=== PATIENT | male | born 1965 | race Asian ===

== ENCOUNTER 2017-10-06 12:58 | Inpatient (IN) | payer MEDICAID ==
[~2017-10-06] VITALS: Ht 165.1 cm; Wt 81.2 kg
[2017-10-06] VITALS (23 sets, daily range): BP systolic 134–222; BP diastolic 90–126
--- NOTE | 2017-10-06 13:03 | NUR ---
A/OX4, PT BB COUSIN FROM HOME FOR DIZZINESS W/ NAUSEA AND VOMITING X YESTERDAY. PT IS ALSO COMPLAINING OF HEADACHE. UPON ASSESSMENT, PT IS NOTED WITH HIGH BP AT 220/145. PT STS HE TAKES LOSARTAN DAILY FOR HTN. PT HAS A H/O OF CVA WITH LT SIDED RESIDUAL. PT DENIES CP/ OR SOB. PT ASSISTED TO EDBED 03. GOWNED AND PLACED ON CONT MONITORING. ALL NEEDS ARE ATTENDED, KEPT WARM AND COMFORTABLE. ENDORSED TO IDA MAYES
[2017-10-06] MEDS ORDERED: ONDANSETRON HCL/PF 4 MG/2 ML VIAL ONE (13:21)
[2017-10-06] MEDS ORDERED: hydrALAZINE HCL IV 20 MG VIAL ONE ×2 (13:21→14:08)
[2017-10-06] MEDS ORDERED: MORPHINE SULFATE INJ 4 MG/ML DISP.SYRIN ONE (13:22)
[2017-10-06 13:28] LABS: BASOPHILS % (AUTO) 0.4 % (0.0-2.0); EOSINOPHILS # (AUTO) 0.4 /CMM (0.0-0.7); EOSINOPHILS % (AUTO) 4.3 % (0.0-6.0); HEMATOCRIT 46 % (39-51); HEMOGLOBIN 15.3 g/dL (13.5-17.5); LYMPHOCYTES # (AUTO) 2.4 /CMM (0.8-4.8); LYMPHOCYTES % (AUTO) 29.2 % (20.0-44.0); MEAN CORPUSCULAR HEMOGLOBIN 29 PG (26.0-33.0); MEAN CORPUSCULAR HGB CONC 33 g/dl (31.0-36.0); MEAN CORPUSCULAR VOLUME 88 fL (80-96); MONOCYTES # (AUTO) 0.4 /CMM (0.1-1.30); MONOCYTES % (AUTO) 4.7 % (2.0-12.0); NEUTROPHILS # (AUTO) 5.1 /CMM (1.8-8.9); NEUTROPHILS % (AUTO) 61.4 % (43.0-81.0); PLATELET COUNT (AUTO) 237 /CMM (150-450); RDW COEFFICIENT OF VARIATION 14.1 (11.5-15.0); RED BLOOD CELL COUNT(AUTO) 5.23 MIL/uL (4.5-6.0); WHITE BLOOD COUNT (AUTO) 8.3 K/uL (4.3-11.0)
[2017-10-06] MEDS ORDERED: ONDANSETRON HCL/PF 4 MG/2 ML VIAL IVP ONE (13:30)
[2017-10-06] MEDS ORDERED: hydrALAZINE HCL IV 20 MG VIAL IV ONE ×2 (13:30→14:00)
[2017-10-06] MEDS ORDERED: IV NS 0.9% 500 ML BAG IV ONE (13:30)
[2017-10-06] MEDS ORDERED: MORPHINE SULFATE INJ 2 MG/ML DISP.SYRIN IV ONE (13:30)
[2017-10-06 13:44] LABS: ALANINE AMINOTRANSFERASE 36 U/L (12-78); ALBUMIN 3.5 g/dL (3.4-5.0); ALKALINE PHOSPHATASE 105 U/L (46-116); ASPARTATE AMINOTRANSFERASE 31 U/L (15-37); BILIRUBIN,DIRECT 0.1 mg/dL (0.0-0.2); BILIRUBIN,TOTAL 0.5 mg/dL (0.2-1.0); CALCIUM, SERUM 8.5 mg/dL (8.5-10.1); CARBON DIOXIDE 29 mmol/L (21-32); CHLORIDE 103 mmol/L (98-107); CREATININE 1.5 mg/dL (0.6-1.3); GLUCOSE 128 mg/dL (74-106); SODIUM SERUM 140 mmol/L (136-145); TOTAL PROTEIN, SERUM 7.6 g/dL (6.4-8.2); UREA NITROGEN, BLOOD 24 mg/dL (7-18)
[2017-10-06 13:46] LABS: TROPONIN I < 0.017 ng/mL (0.00-0.056)
[2017-10-06 13:47] LABS: POTASSIUM 2.7 mmol/L (3.5-5.1)
[2017-10-06 13:49] LABS: INR 0.93 (0.87-1.13)
--- NOTE | 2017-10-06 13:51 | NUR ---
URINE SAMPLE COLLECTED SENT TO LAB
[2017-10-06] MEDS ORDERED: POTASSIUM CHLORIDE 20 MEQ TAB.PRT.SR PO ONE ×2 (14:00→14:09)
[2017-10-06] MEDS ORDERED: CLONIDINE HCL 0.1 MG TABLET PO ONE (14:00)
[2017-10-06] MEDS ORDERED: POTASSIUM CL. PREMIX PERIPHER. 50 ML ONE ×2 (14:08→14:42)
[2017-10-06] MEDS ORDERED: CLONIDINE HCL 0.1 MG TABLET ONE (14:09)
[2017-10-06] MEDS: POTASSIUM CL. PREMIX PERIPHER. 50 ML IV SCH ×3 (14:09→16:45)
[2017-10-06 14:12] LABS: APPEARANCE,URINE CLEAR (CLEAR); BILIRUBIN,URINE NEGATIVE (NEGATIVE); BLOOD, URINE NEGATIVE Ery/uL (NEGATIVE); COLOR,URINE YELLOW (YELLOW); KETONES,URINE NEGATIVE (NEGATIVE); LEUKOCYTE ESTERASE ,URINE NEGATIVE (NEGATIVE); NITRITE, URINE NEGATIVE (NEGATIVE); PROTEIN,URINE 2+ mg/dl (NEGATIVE); UGLUCOSE NEGATIVE (NEGATIVE); UROBILINOGEN,URINE 0.2 EU/dL (0.2)
--- NOTE | 2017-10-06 14:15 | NUR ---
SPOKE WITH NURSE SUP FOR BAM BED
[2017-10-06] MEDS ORDERED: ENALAPRILAT INJ (1.25 MG/ML) 1.25 MG/ML VIAL IV STA ×2 (14:28→15:12)
[2017-10-06] MEDS ORDERED: ENALAPRILAT DIHYD. (2.5MG/ML) 1.25 MG/ML VIAL IV ONE ×2 (14:41→15:17)
[2017-10-06] MEDS ORDERED: Magnesium 1GM/D5W 100ML PREMIX 200 ML IV ONE (14:42)
[2017-10-06] MEDS ORDERED: LOSA100T15 PO (14:45)
[2017-10-06 14:47] LABS: BACTERIA,URINE None seen /HPF (None Seen); MUCUS,URINE Few /LPF (None Seen); RBC,URINE 0-2 /HPF (0-2); SQUAMOUS EPITHELIAL CELL,UR 0-2 /HPF (None Seen); WBC,URINE 0-2 /HPF (0-3)
[2017-10-06] MEDS: Magnesium 1GM/D5W 100ML PREMIX 100 ML IV SCH ×2 (14:52→15:42)
--- NOTE | 2017-10-06 15:17 | NUR ---
PAGED DR COELLO
--- NOTE | 2017-10-06 15:28 | NUR ---
INFORMED NURSE SUP THAT DR COELLO IS REQUESTING ICU BED - AWAITING ASSIGNMENT
[2017-10-06] MEDS ORDERED: MAG HYDROX/AL HYDROX/SIMETH 30 ML UDC PO PRN (15:30)
[2017-10-06] MEDS ORDERED: Z GUARD REMEDY 2 OZ OINT TP PRN (15:30)
[2017-10-06] MEDS ORDERED: MAGNESIUM HYDROXIDE 30 ML UDC PO PRN (15:30)
[2017-10-06] MEDS ORDERED: ZOLPIDEM TARTRATE 5 MG TABLET PO PRN (15:30)
[2017-10-06] MEDS ORDERED: ACETAMINOPHEN 325 MG TABLET PO PRN (15:30)
[2017-10-06] MEDS ORDERED: HYDROCODONE/APAP 5/325MG 1 EACH TABLET PO PRN (15:30)
[2017-10-06] MEDS ORDERED: MORPHINE SULFATE INJ 2 MG/ML DISP.SYRIN IV PRN (15:30)
[2017-10-06] MEDS ORDERED: AMLODIPINE BESYLATE 5 MG TABLET PO SCH (15:30)
[2017-10-06 15:31] LABS: MAGNESIUM 1.9 mg/dL (1.8-2.4)
--- NOTE | 2017-10-06 15:51 | NUR ---
GAVE REPORT TO DAVID MAYES ICU ROOM 251 ICU HYPERTENSIVE EMERGENCIES HYPOKALEMIA. PT POTASSIUM INFUSING 40 MEQ TOTAL
[2017-10-06] MEDS ORDERED: POTASSIUM CL. PREMIX PERIPHER. 100 ML ONE (16:08)
--- NOTE | 2017-10-06 16:30 | NUR ---
VENDING MACHINE TECHNICIAN RECEIVED PATIENT AWAKE , ALERT ORIENTED X 3 AFEBRILE, NO HEADACHE DIZZINESS VERBALIZED BY THE PATIENT \ Addendum: 10/06/17 at 1740 by DAVID NEIL RN ON GOING POTASSIUM IV 3RD BAG IS GIVEN MONITORED CLOSELY
[2017-10-06] MEDS: IV NS 0.9% 1,000 ML IV SCH (16:47)
[2017-10-06] MEDS: CLONIDINE HCL 0.1 MG TABLET PO PRN (16:50)
[2017-10-06] MEDS: hydrALAZINE HCL IV 20 MG VIAL IV PRN (17:39)
--- NOTE | 2017-10-06 17:41 | NUR ---
STRIP POLISHER BLOOD PRESSORE STILL HIGH DESPITE OF RECENT INTERVENTION HYDRALAZINE IV GIVEN
[2017-10-06] MEDS: ONDANSETRON HCL/PF 4 MG/2 ML VIAL IVP PRN (18:04)
--- NOTE | 2017-10-06 18:22 | NUR ---
BP 222/118 AFTER NORVASC, CLONIDINE, APRESOLINE. DID HAVE EMESIS AND RECEIVED ZOFRAN. C/O SLIGHT DIZZINESS. D/W DR COELLO. ORDERS FOR NITROPRUSSIDE GTT
[2017-10-06] MEDS ORDERED: NTG 50 MG/D5W250 ML BOTTL 250 ML IV PRN (19:00)
--- NOTE | 2017-10-06 20:00 | NUR ---
FOOD AND BEVERAGE COORDINATOR - NOTES - PT RECEIVED IN BED, BP ELEVATED, PT ON NITRO DRIP TO KEEP SBP BETWEEN 130 AND 160. PT IS ALERT AND ORIENTED X 4, SLEEPING, AROUSES EASILY. PT IS ON ROOM AIR, TOLERATING WELL. PT IS SINUS RHYTHM ON THE MONITOR HR 70S-80S. PT HAS 2 PERIPHERAL IVS WITH NITRO DRIP AND NS @ 75 ML/HR. WILL CONTINUE TO MONITOR
[2017-10-07] VITALS (97 sets, daily range): BP systolic 121–206; BP diastolic 71–141
[2017-10-07] MEDS: IV NS 0.9% 1,000 ML IV SCH (05:09)
[2017-10-07 05:39] LABS: BASOPHILS % (AUTO) 0.3 % (0.0-2.0); EOSINOPHILS % (AUTO) 0.2 % (0.0-6.0); HEMATOCRIT 42 % (39-51); HEMOGLOBIN 14.3 g/dL (13.5-17.5); LYMPHOCYTES # (AUTO) 1.2 /CMM (0.8-4.8); LYMPHOCYTES % (AUTO) 11.6 % (20.0-44.0); MEAN CORPUSCULAR HEMOGLOBIN 30 PG (26.0-33.0); MEAN CORPUSCULAR HGB CONC 34 g/dl (31.0-36.0); MEAN CORPUSCULAR VOLUME 87 fL (80-96); MONOCYTES # (AUTO) 0.6 /CMM (0.1-1.30); MONOCYTES % (AUTO) 5.8 % (2.0-12.0); NEUTROPHILS # (AUTO) 8.6 /CMM (1.8-8.9); NEUTROPHILS % (AUTO) 82.1 % (43.0-81.0); PLATELET COUNT (AUTO) 227 /CMM (150-450); RDW COEFFICIENT OF VARIATION 14.4 (11.5-15.0); RED BLOOD CELL COUNT(AUTO) 4.85 MIL/uL (4.5-6.0); WHITE BLOOD COUNT (AUTO) 10.5 K/uL (4.3-11.0)
[2017-10-07 05:55] LABS: CALCIUM, SERUM 8.2 mg/dL (8.5-10.1); CREATININE 1.3 mg/dL (0.6-1.3); MAGNESIUM 2.3 mg/dL (1.8-2.4); PHOSPHORUS 3.2 mg/dL (2.5-4.9); POTASSIUM 3.1 mmol/L (3.5-5.1)
--- NOTE | 2017-10-07 07:53 | NUR ---
INITIAL INFORMATION OPERATOR NOTE RCVD PT RESTING IN BED, EASILY AROUSED TO NAME, SHOWING NO S/O DISTRESS/PAIN AT THIS TIME. ON RA TOLERATING WELL. URINAL AT BEDSIDE. IV SITES C/D/I/PATENT. NO S/O INFILTRATION/PHLEBITIS OBSERVED IVF INFUSING. WILL CONTINUE TO MONITOR PT FOR SAFETY AND COMFORT. CALL LIGHT WITHIN REACH. BED IN LOW AND LOCKED POSITION.
[2017-10-07] MEDS ORDERED: METOPROLOL TARTRATE 25 MG TABLET PO SCH (08:00)
[2017-10-07 08:31] LABS: TROPONIN I 0.842 ng/mL (0.00-0.056)
[2017-10-07 08:36] LABS: THYROID STIMULATING HORMONE 0.22 uIU/mL (0.358-3.74)
--- NOTE | 2017-10-07 08:41 | NUR ---
ORTHOTIC/PROSTHETIC CLINICIAN NOTE DR. LOPEZ IN UNIT INFORMED OF PT'S TROPONIN TRENDING UP. ACKNOWLEDGED. NO NEW ORDERS RCVD.
[2017-10-07] MEDS ORDERED: VALSARTAN 80 MG TABLET PO SCH (09:00)
[2017-10-07] MEDS ORDERED: LOSARTAN POTASSIUM 25 MG TABLET PO SCH (09:00)
[2017-10-07] MEDS: POTASSIUM CHLORIDE 20 MEQ TAB.PRT.SR PO SCH ×3 (09:07→12:19)
[2017-10-07] MEDS: AMLODIPINE BESYLATE 5 MG TABLET PO SCH (09:08)
[2017-10-07] MEDS: hydrALAZINE HCL 50 MG TABLET PO SCH ×3 (09:08→17:33)
[2017-10-07] MEDS ORDERED: CT SWABBABLE VALVE TRANS SET 1 EA INFUS.SET MC ONE (09:16)
[2017-10-07] MEDS: ONDANSETRON HCL/PF 4 MG/2 ML VIAL IVP PRN ×2 (09:16→20:37)
[2017-10-07] MEDS ORDERED: IOHEXOL-350 100 ML VIAL IV ONE (09:16)
[2017-10-07] MEDS ORDERED: IV NS 0.9% 250 ML IV ONE (09:17)
[2017-10-07] MEDS: METOPROLOL TARTRATE 25 MG TABLET PO SCH ×3 (12:19→23:44)
--- NOTE | 2017-10-07 13:09 | NUR ---
FAGOT MAKER NOTE PT OBSERVED HAVING DIFFICULTY URINATING, VOIDING IN SMALL AMOUNTS. PT DENIES ANY PAIN OVER BLADDER AREA, UPON PALPATION FEELS FIRM. BLADDER SCAN DONE POST-VOID RESIDUAL >200 ML. PT INFORMED OF FINDING AND POSSIBLE CATHETERIZATION. PT AGREES. DR. COELLO CONTACTED REGARDING ABOVE AND RECOMMENDED TO INSERT SILVER. ORDER ENTERED AND ACKNOWLEDGED.
--- NOTE | 2017-10-07 14:27 | NUR ---
MANAGER PHARMACEUTICAL NOTE SILVER IN PLACE DRAINED OVER 400ML POST-INSERTION. WILL CONTINUE TO MONITOR.
[2017-10-07] MEDS: hydrALAZINE HCL IV 20 MG VIAL IV PRN ×2 (15:21→19:29)
--- NOTE | 2017-10-07 18:57 | NUR ---
HOOP PUNCHER NOTE PT REMAINS HYPERTENSIVE, ALERT, SLEEPY DURING SHIFT. SR/ST THROUGHOUT THE DAY. BREATHING WELL ON RA. SILVER TO GRAVITY DRAINING CLEAR, YELLOW URINE. NO BM DURING SHIFT AND NO PO INTAKE OTHER THAN WATER AND MEDICATIONS. IV SITES C/D/I/PATENT. NO S/O INFILTRATION/PHLEBITIS OBSERVED UPON FLUSHING. PT'S CARE WILL BE ENDORSED TO CHILD CARE SITTER RN FOR CONTINUITY OF CARE. BED IN LOW AND LOCKED POSITION. CALL LIGHT WITHIN REACH.
--- NOTE | 2017-10-07 20:00 | NUR ---
MICRO PHOTOGRAPHER - NOTES - PT RECEIVED IN BED, BP ELEVATED. PT IS ALERT AND ORIENTED X 4, SLEEPING, AROUSES EASILY. PT IS ON ROOM AIR, TOLERATING WELL. PT IS SINUS RHYTHM ON THE MONITOR HR 70S-80S. PT HAS 2 PERIPHERAL IVS. WILL CONTINUE TO MONITOR
--- NOTE | 2017-10-07 20:19 | NUR ---
PT HAD AN EPISODE OF EMESIS WITH WRETCHING
[2017-10-07] MEDS: CLONIDINE HCL 0.1 MG TABLET PO PRN (20:37)
--- NOTE | 2017-10-07 20:51 | NUR ---
PT HAD ANOTHER EPISODE OF EMESIS AND THEN ATE APPROX 20% OF DINNER , SBP OVER 200, ALL BP PRN MEDS GIVEN, NO MORPHINE 2 MG AVAILABLE, CALLING MD NOW FOR OTHER OPTIONS
[2017-10-07] MEDS ORDERED: CLONIDINE HCL 0.1 MG TABLET PO ONE (21:00)
[2017-10-07] MEDS: HYDROMORPHONE INJ 0.5 MG/0.5 ML SYRINGE IV PRN (21:10)
[2017-10-08] VITALS (62 sets, daily range): BP systolic 108–189; BP diastolic 67–128
[2017-10-08] MEDS: hydrALAZINE HCL IV 20 MG VIAL IV PRN (04:11)
[2017-10-08] MEDS: METOPROLOL TARTRATE 25 MG TABLET PO SCH ×4 (05:23→23:29)
--- NOTE | 2017-10-08 07:49 | NUR ---
INITIAL REVENUE ENFORCEMENT AGENT NOTE RCVD PT SLEEPING EASILY AROUSED TO NAME, SR ON TELE. ON RA TOLERATING WELL. SILVER TO GRAVITY DRAINING CLEAR, YELLOW URINE. IV SITES C/D/I/PATENT. NO S/O INFILTRATION/PHLEBITIS UPON FLUSHING. SBP REMAINS ELEVATED. WILL CONTINUE TO MONITOR AND ADMINISTER MEDICATIONS NEEDED. BED IN LOW AND LOCKED POSITION. CALL LIGHT WITHIN REACH.
[2017-10-08] MEDS: ONDANSETRON HCL/PF 4 MG/2 ML VIAL IVP PRN (07:56)
[2017-10-08] MEDS: HYDROMORPHONE INJ 0.5 MG/0.5 ML SYRINGE IV PRN (07:58)
[2017-10-08] MEDS: hydrALAZINE HCL 50 MG TABLET PO SCH ×3 (08:00→16:10)
[2017-10-08] MEDS: AMLODIPINE BESYLATE 5 MG TABLET PO SCH (08:00)
[2017-10-08 08:14] LABS: BASOPHILS % (AUTO) 0.1 % (0.0-2.0); EOSINOPHILS % (AUTO) 0.1 % (0.0-6.0); HEMATOCRIT 47 % (39-51); HEMOGLOBIN 15.7 g/dL (13.5-17.5); LYMPHOCYTES # (AUTO) 1.4 /CMM (0.8-4.8); LYMPHOCYTES % (AUTO) 13.1 % (20.0-44.0); MEAN CORPUSCULAR HEMOGLOBIN 29 PG (26.0-33.0); MEAN CORPUSCULAR HGB CONC 33 g/dl (31.0-36.0); MEAN CORPUSCULAR VOLUME 88 fL (80-96); MONOCYTES # (AUTO) 0.3 /CMM (0.1-1.30); MONOCYTES % (AUTO) 2.9 % (2.0-12.0); NEUTROPHILS # (AUTO) 8.7 /CMM (1.8-8.9); NEUTROPHILS % (AUTO) 83.8 % (43.0-81.0); PLATELET COUNT (AUTO) 249 /CMM (150-450); RDW COEFFICIENT OF VARIATION 14.1 (11.5-15.0); RED BLOOD CELL COUNT(AUTO) 5.34 MIL/uL (4.5-6.0); WHITE BLOOD COUNT (AUTO) 10.4 K/uL (4.3-11.0)
[2017-10-08] MEDS: ISOSORBIDE DINITRATE (20MG) 20 MG TABLET PO SCH ×2 (08:15→16:09)
[2017-10-08] MEDS: ASPIRIN 81 MG TAB.CHEW PO SCH (08:15)
[2017-10-08] MEDS: HYDROCHLOROTHIAZIDE 25 MG TABLET PO SCH (08:15)
[2017-10-08] MEDS: ATORVASTATIN 10 MG TABLET PO SCH (08:15)
[2017-10-08] MEDS: VALSARTAN 80 MG TABLET PO SCH (08:16)
[2017-10-08 08:22] LABS: CALCIUM, SERUM 8.6 mg/dL (8.5-10.1); CREATININE 1.1 mg/dL (0.6-1.3); POTASSIUM 3.5 mmol/L (3.5-5.1)
[2017-10-08] MEDS: ENOXAPARIN SODIUM 40 MG/0.4 ML DISP.SYRIN SQ SCH (08:22)
--- NOTE | 2017-10-08 14:19 | NUR ---
RN NOTES RECEIVED PT FROM ICU IN ROOM 102, A/Ox2, ON RA , RESPIRATION EVEN AND UNLBOARD, NO SOB NOTED , ON TELE SR , HR IN 70'S, SILVER DRAINING TO GRAVITY , L AC IV SITE G 18 AND L WRIST IV SITE G 20 CDI, SR UP x3, CALL LIGHT WITHIN EASY REACH, BED LOCKED AND IN LOWEST POSITION , CONTINUE TO MONITOR PT CLOSELY .
--- NOTE | 2017-10-08 14:21 | NUR ---
ICU TRANSFER TO BAM RN NOTE PT TRANSFERRED TO BAM VIA MONITORED BED, PER PROTOCOL WITH RN AT BEDSIDE. PT REMAINED IN STABLE CONDITION, NO S/O DISTRESS/PAIN OBSERVED/REPORTED. SR ON TELE, ON RA TOLERATING WELL. SILVER TO GRAVITY DRAINING WELL. IV SITES C/D/I/PATENT. PT'S CARE ENDORSED TO SUGEY WEBB FOR CONTINUITY OF CARE.
[2017-10-08] MEDS: BOOST PLUS FOOD-VANILLA 237 ML BOX PO SCH (17:00)
--- NOTE | 2017-10-08 18:13 | NUR ---
RN NOTES PT STABLE , RESPIRATION EVEN AND UNLABORED, NO DISTRESS NOTED , ENCOURAGED PO INTAKE , WILL ENDORSE TO PUBLIC INFORMATION DIRECTOR NURSE FOR NICCI.
--- NOTE | 2017-10-08 19:30 | NUR ---
RN INITIAL NOTES: RECEIVED REPORT FROM GLORIA MAYES, PT IN BED, SLEEPING, AROUSES TO TACTILE STIMULI. PT IS A/O X4, TAGALOG SPEAKING, ON RA RESPIRATION EVEN AND UNLABORED, ON TELE MONITORING SINUS RHYTHM HR 67, DENIES ANY PAIN OR DISCOMFORT AT THIS TIME, PT HAS LEFT AC IV ACCESS AND LEFT WRIST IV ACCESS BOTH FLUSHING WELL, ON HL. SCD IN PLACED, PT ABLE TO TURN AND REPOSITION, HAS SILVER CATHETER IN PLACED DRAINING INTO KARIN COLORED URINE. SAFETY PRECAUTIONS FOR FALL INITIATED CALL LIGHT IN REACH, WILL CONTINUE TO MONITOR
[2017-10-08] MEDS: CLONIDINE HCL 0.1 MG TABLET PO PRN (20:18)
--- NOTE | 2017-10-08 20:18 | NUR ---
PRN CATAPRES: PRN CATAPRES 0.1MG TAB ADMINISTERED FOR BP 163/90 HR 72, WILL RECHECK PT'S BP AFTER AN HOUR
[2017-10-09] VITALS (10 sets, daily range): BP systolic 135–182; BP diastolic 78–109
[2017-10-09] MEDS: hydrALAZINE HCL IV 20 MG VIAL IV PRN (05:14)
--- NOTE | 2017-10-09 05:15 | NUR ---
PRN HYDRALAZINE IV: RECHECK PT'S VS AND REVEAL 174/103 HR 64 RR 20, PT DENIES ANY PAIN OR DISCOMFORT, ON SINUS RHYTHM HR 65, PRN IV HYDRALAZINE 20MG SLOW IVP FOR 30SEC ADMINISTERED AT THIS TIME, DONOR SERVICES COORDINATOR NOTIFIED ABOUT PT RECEIVING IVP MEDICATION AND WAS INSTRUCTED TO MAKE RN AWARE IN CASE THERE WOULD BE ANY RHYTHM CHANGES DURING MEDICATION ADMINISTRATION. VS WILL BE RECHECK AFTER 30MINS, PT CONNECTED TO VS MACHINE HR 67, SPO2 97% RR 18, ON TELEMONITORING HR 65 SINUS RHYTHM. NO CHANGES IN HEART RHYTHM NOTED PER DONOR SERVICES COORDINATOR, WILL CONTINUE MONITORING PT.
--- NOTE | 2017-10-09 05:24 | NUR ---
REASSESSMENT OF VS AFTER GIVING IV HYDRALAZINE: BP 141/78 HR 65 RR 18 SPO2 97% SINUS RHYTHM HR 65, NO OTHER COMPLAINTS FROM THE PT, DENIES ANY PAIN OR DISCOMFORT
[2017-10-09] MEDS: METOPROLOL TARTRATE 25 MG TABLET PO SCH ×3 (06:00→18:04)
[2017-10-09 06:37] LABS: BASOPHILS % (AUTO) 0.2 % (0.0-2.0); EOSINOPHILS % (AUTO) 0.3 % (0.0-6.0); HEMATOCRIT 44 % (39-51); HEMOGLOBIN 14.7 g/dL (13.5-17.5); LYMPHOCYTES # (AUTO) 1.8 /CMM (0.8-4.8); LYMPHOCYTES % (AUTO) 16.7 % (20.0-44.0); MEAN CORPUSCULAR HEMOGLOBIN 30 PG (26.0-33.0); MEAN CORPUSCULAR HGB CONC 34 g/dl (31.0-36.0); MEAN CORPUSCULAR VOLUME 88 fL (80-96); MONOCYTES # (AUTO) 0.7 /CMM (0.1-1.30); MONOCYTES % (AUTO) 6.3 % (2.0-12.0); NEUTROPHILS # (AUTO) 8.2 /CMM (1.8-8.9); NEUTROPHILS % (AUTO) 76.5 % (43.0-81.0); PLATELET COUNT (AUTO) 255 /CMM (150-450); RDW COEFFICIENT OF VARIATION 13.8 (11.5-15.0); RED BLOOD CELL COUNT(AUTO) 4.96 MIL/uL (4.5-6.0); WHITE BLOOD COUNT (AUTO) 10.7 K/uL (4.3-11.0)
--- NOTE | 2017-10-09 06:43 | NUR ---
RN CLOSING NOTES: PT IN BED, REMAIN ON RA DENIES ANY SOB, DENIES ANY PAIN THROUGHOUT THE SHIFT, IV ACCESS REMAINS PATENT AND FLUSHING WELL, ON HL. REMAINS ON SINUS RHYTHM HR 72, VS REMAINS STABLE, SILVER CATHETER REMAINS PATENT AND DRAINING INTO KARIN COLORED URINE. NEEDS ATTENDED. BLE OFFLOADED. SAFETY PRECAUTIONS FOR FALL REMAINS ENGAGED, CALL LIGHT IN REACH. WILL ENDORSE TO DAY RN FOR NICCI.
[2017-10-09 06:48] LABS: TROPONIN I 0.212 ng/mL (0.00-0.056)
--- NOTE | 2017-10-09 06:51 | NUR ---
TROPONIN 0.212 RECEIVED CRITICAL LAB RESULT FOR TROPONIN 0.212, REPORTED BY DONNA KERNS FROM LAB. PT'S PREVIOUS RESULT IS 0.842, RESULT TRENDING DOWN. CONTACTED [employer] AWAITING FOR CALL BACK
--- NOTE | 2017-10-09 07:20 | NUR ---
RN OPENING/TELE NOTES RECEIVED PT. IN BED A&OX3. BREATHING UNLABORED, AND EVENLY ON ROOM AIR. NO S/S OF ACUTE DISTRESS. IV ACCESS IS INTACT AND PATENT. PT. DENIES PAIN. 2 SIDE RAILS UP, AND INSTRUCTED PT. TO USE CALL LIGHT FOR ASSISTANCE. ALL NEEDS MET. WILL CONTINUE TO ASSESS AND MONITOR
[2017-10-09] MEDS: CLONIDINE HCL 0.1 MG TABLET PO PRN (07:39)
[2017-10-09 07:57] LABS: CREATININE 1.3 mg/dL (0.6-1.3); MAGNESIUM 2.4 mg/dL (1.8-2.4); PHOSPHORUS 3.8 mg/dL (2.5-4.9); POTASSIUM 3.3 mmol/L (3.5-5.1); TOTAL PROTEIN, SERUM 7.5 g/dL (6.4-8.2)
[2017-10-09] MEDS: AMLODIPINE BESYLATE 5 MG TABLET PO SCH (08:16)
[2017-10-09] MEDS: hydrALAZINE HCL 50 MG TABLET PO SCH ×3 (08:16→16:43)
[2017-10-09] MEDS: HYDROCHLOROTHIAZIDE 25 MG TABLET PO SCH (08:16)
[2017-10-09] MEDS: VALSARTAN 80 MG TABLET PO SCH (08:17)
[2017-10-09] MEDS: ISOSORBIDE DINITRATE (20MG) 20 MG TABLET PO SCH ×2 (08:17→16:43)
[2017-10-09] MEDS: BOOST PLUS FOOD-VANILLA 237 ML BOX PO SCH ×2 (08:28→16:44)
[2017-10-09] MEDS: ATORVASTATIN 10 MG TABLET PO SCH (08:29)
[2017-10-09] MEDS: ASPIRIN 81 MG TAB.CHEW PO SCH (08:29)
[2017-10-09] MEDS: ENOXAPARIN SODIUM 40 MG/0.4 ML DISP.SYRIN SQ SCH (08:32)
[2017-10-09] MEDS ORDERED: POTASSIUM CHLORIDE 20 MEQ TAB.PRT.SR PO SCH (09:30)
[2017-10-09] MEDS: POTASSIUM CHLORIDE 20 MEQ TAB.PRT.SR PO SCH ×2 (10:13→11:07)
[2017-10-09] MEDS: LISINOPRIL (10MG) 10 MG TABLET PO SCH ×2 (10:15→21:51)
[2017-10-09] MEDS: ONDANSETRON HCL/PF 4 MG/2 ML VIAL IVP PRN (12:56)
--- NOTE | 2017-10-09 18:38 | NUR ---
RN CLOSING/TELE NOTES PT. IN BED A&OX3. BREATHING UNLABORED, AND EVENLY ON ROOM AIR. DENIES PAIN. NO S/S OF ACUTE DISTRESS. IV ACCESS ARE INTACT AND PATENT. 2 SIDE RAILS UP, AND INSTRUCTED PT. TO USE CALL LIGHT FOR ASSISTANCE. ALL NEEDS MET. WILL ENDORSE REPORT TO NURSE.
[2017-10-10] VITALS: BP 155/94
[2017-10-10] MEDS: METOPROLOL TARTRATE 25 MG TABLET PO SCH ×4 (01:01→17:34)
[2017-10-10 04:00] VITALS: BP 164/98
--- NOTE | 2017-10-10 07:10 | NUR ---
SUPPLY CHAIN PLANNER OPENING NOTES. PT RECEIVED A&0X3, RESTING IN BED AND REQUESTING MORE SLEEP. PT TOLERATING ROOM AIR WITHOUT S/S OF RESP DISTRESS. PT DENIES PAIN AT THIS TIME. PT WITH IVCX2, IVC AT L WRIST PAINFUL WITH FLUSH UNABLE. IVC AT L AC G18 INTACT AND SALINE FLUSH PATENT. BED IN LOWEST LOCKED POSITION WITH HNADRAILSX2 AND CALL SANTOYO WITHIN REACH. PT BRIEFED ON TODAY'S POC AND IS WITHOUT CONCERN OR COMPLAINT AT THIS TIME.
[2017-10-10 07:15] LABS: CALCIUM, SERUM 8.8 mg/dL (8.5-10.1); CREATININE 1.4 mg/dL (0.6-1.3); POTASSIUM 3.2 mmol/L (3.5-5.1)
[2017-10-10 08:00] VITALS: BP 174/116
[2017-10-10] MEDS: BOOST PLUS FOOD-VANILLA 237 ML BOX PO SCH ×2 (08:21→17:36)
[2017-10-10] MEDS: HYDROCHLOROTHIAZIDE 25 MG TABLET PO SCH (08:22)
[2017-10-10] MEDS: hydrALAZINE HCL 50 MG TABLET PO SCH ×3 (08:23→17:35)
[2017-10-10] MEDS: ISOSORBIDE DINITRATE (20MG) 20 MG TABLET PO SCH ×2 (08:23→17:35)
[2017-10-10] MEDS: ASPIRIN 81 MG TAB.CHEW PO SCH (08:24)
[2017-10-10] MEDS: VALSARTAN 80 MG TABLET PO SCH (08:24)
[2017-10-10] MEDS: LISINOPRIL (10MG) 10 MG TABLET PO SCH (08:24)
[2017-10-10] MEDS: ATORVASTATIN 10 MG TABLET PO SCH (08:24)
[2017-10-10] MEDS: AMLODIPINE BESYLATE 5 MG TABLET PO SCH (08:24)
[2017-10-10] MEDS: ENOXAPARIN SODIUM 40 MG/0.4 ML DISP.SYRIN SQ SCH (08:26)
[2017-10-10] MEDS ORDERED: SPIRONOLACTONE 25 MG TABLET PO SCH (09:00)
[2017-10-10 12:00] VITALS: BP 147/95
[2017-10-10] MEDS ORDERED: POTASSIUM CHLORIDE 20 MEQ POWDER PACKET PO SCH (13:00)
[2017-10-10] MEDS ORDERED: ISOS20TA8 PO (14:00)
[2017-10-10] MEDS ORDERED: SPIR25TA PO (14:00)
[2017-10-10] MEDS ORDERED: HYDR25TA4 PO (14:00)
[2017-10-10] MEDS ORDERED: ASPI-1169 PO (14:00)
[2017-10-10] MEDS ORDERED: AMLO5TAB2 PO (14:00)
[2017-10-10] MEDS ORDERED: ATOR10TA PO (14:00)
[2017-10-10] MEDS ORDERED: HYDR-4077 PO (14:00)
[2017-10-10] MEDS ORDERED: LISI10TA59 PO (14:00)
[2017-10-10] MEDS ORDERED: VALS80TA2 PO (14:00)
[2017-10-10] MEDS ORDERED: METO25TA20 PO (14:00)
[2017-10-10 16:00] VITALS: BP 166/99
--- NOTE | 2017-10-10 16:00 | NUR ---
RN NOTES. NADEEM D/C PER .
--- NOTE | 2017-10-10 17:45 | NUR ---
RN NOTES. CALLED PT MACHINIST AUTOMOTIVE, NOT ANSWERING. PT STATES NO ONE ELSE CAN. CN AWARE
--- NOTE | 2017-10-10 18:00 | NUR ---
RN NOTES. PT P/UP NOT ANSWERING
--- NOTE | 2017-10-10 18:40 | NUR ---
RN NOTES. PT PREPARED FOR D/C PER . PT PICKUP EN ROUTE.
--- NOTE | 2017-10-10 18:50 | NUR ---
RN CLOSING NOTES PT WITH D/C ORDER AND AWAITING LIFT. PT TOLERATING ROOM AIR AND DENIES PAIN. PT WITHOUT SILVER AND HAS VOIDED. PT WITH IVCX2 TO BE REMOVED BY NIGHT NURSE. SOH D/C PACKET PREPARED AND TO BE ENDORSED TO PT AND PT P/UP BY NIGHT NURSE. PT WITH ALL BELONGINGS AND DOCUMENT SIGNED. PT BED IN LOWEST LOCKED POSITION WITH HANDRAILSX2 AND CALL SANTOYO WITHIN REACH. PT WITHOUT CONCERN OR COMPLAINT AT THIS TIME.
--- NOTE | 2017-10-10 19:50 | NUR ---
RN NOTE PT REMAINS IN NO ACUTE DISTRESS IN BED. PT D/C PACKET COMPLETE AND PT PICKED UP BY COUSIN. PT WHEELED OUT OF HOSPITALN VIA WHEELCHAIR AND ASSISTED INTO CAR. PT LEFT HOSPITAL IN NO ACUTE DISTRESS.
[2017-10-10 20:00] VITALS: BP 148/88
== END 2017-10-10 19:50 | disposition home or self-care (01) | DRG 199 ==
LOC: ER 13:03 → ICU 15:44 → TELE-TD 10-08 14:17 → TELE1 10-08 15:44
PROVIDERS: ADMIT Internal Medicine; ATTEND Internal Medicine
DX: I16.1 Hypertensive emergency (principal); I21.A1 Myocardial infarction type 2; N17.0 Acute kidney failure with tubular necrosis; I69.354 Hemiplegia and hemiparesis following cerebral infarction affecting left non-dominant side; E87.6 Hypokalemia; E05.90 Thyrotoxicosis, unspecified without thyrotoxic crisis or storm; N18.9 Chronic kidney disease, unspecified; I12.9 Hypertensive chronic kidney disease with stage 1 through stage 4 chronic kidney disease, or unspecified chronic kidney disease; I70.1 Atherosclerosis of renal artery; N13.30 Unspecified hydronephrosis
CPT/HCPCS: 36415; 70450-TC; 71045-TC; 74175-TC; 76770-TC; 80048-TC; 80053-TC; 80061-TC; 80076-TC; 81000-TC; 83735-TC; 84100-TC; 84439-TC; 84443-TC; 84484-TC; 85025-TC; 85730-TC; 87081-TC; 93307-TC; A4606; J0360; J1650; J2270; J2405; J3475; J3480; J3490; J7030; J7040; J7050; Q9967; Z7610

== ENCOUNTER 2017-10-12 10:43 | Inpatient (IN) | payer SELFPAY ==
[2017-10-12] VITALS (14 sets, daily range): BP systolic 112–217; BP diastolic 58–130
[~2017-10-12] VITALS: Ht 167.6 cm; Wt 68.0 kg
[~2017-10-12 10:43] MED LIST: AMLO5TAB2 PO; ASPI-1169 PO; ATOR10TA PO; HYDR-4077 PO; HYDR25TA4 PO; ISOS20TA8 PO; LISI10TA59 PO; METO25TA20 PO; SPIR25TA PO; VALS80TA2 PO
--- NOTE | 2017-10-12 10:45 | NUR ---
51 YO MALE BB RA FOR NOT FEELING WELL. PATIENT IS ALERT AND ORIENTED X 3, NO DISTRESS NOTED AT THIS TIME. PATIENT ASSISTED TO ER BED, SKIN WARM AND DRY, RESP EVEN AND UNLABORED. PATIENT WAS GOWNED, PLACED ON HAIRSPRING VIBRATOR. AWAITING ORDERS FROM PROVIDER
[2017-10-12 11:17] LABS: BASOPHILS % (AUTO) 0.2 % (0.0-2.0); EOSINOPHILS # (AUTO) 0.4 /CMM (0.0-0.7); EOSINOPHILS % (AUTO) 4.1 % (0.0-6.0); HEMATOCRIT 50 % (39-51); HEMOGLOBIN 16.7 g/dL (13.5-17.5); LYMPHOCYTES # (AUTO) 1.7 /CMM (0.8-4.8); LYMPHOCYTES % (AUTO) 16.5 % (20.0-44.0); MEAN CORPUSCULAR HEMOGLOBIN 30 PG (26.0-33.0); MEAN CORPUSCULAR HGB CONC 33 g/dl (31.0-36.0); MEAN CORPUSCULAR VOLUME 89 fL (80-96); MONOCYTES # (AUTO) 0.8 /CMM (0.1-1.30); MONOCYTES % (AUTO) 7.3 % (2.0-12.0); NEUTROPHILS # (AUTO) 7.5 /CMM (1.8-8.9); NEUTROPHILS % (AUTO) 71.9 % (43.0-81.0); PLATELET COUNT (AUTO) 292 /CMM (150-450); RDW COEFFICIENT OF VARIATION 14.2 (11.5-15.0); RED BLOOD CELL COUNT(AUTO) 5.64 MIL/uL (4.5-6.0); WHITE BLOOD COUNT (AUTO) 10.5 K/uL (4.3-11.0)
[2017-10-12 11:30] LABS: CALCIUM, SERUM 8.5 mg/dL (8.5-10.1); CREATININE 1.4 mg/dL (0.6-1.3); POTASSIUM 3.5 mmol/L (3.5-5.1)
[2017-10-12 11:39] LABS: TROPONIN I 0.017 ng/mL (0.00-0.056)
--- NOTE | 2017-10-12 12:20 | NUR ---
PATIENT WAS TRANSPORTED TO CT VIA [facility]
--- NOTE | 2017-10-12 12:29 | NUR ---
PATIENT RETURNED FROM CT VIA [facility]
--- NOTE | 2017-10-12 13:21 | NUR ---
18G RIGHT AC IV STARTED
[2017-10-12] MEDS ORDERED: ASPIRIN EC 325 MG TABLET.DR PO ONE ×2 (13:30→13:40)
--- NOTE | 2017-10-12 13:30 | NUR ---
TRANSPORTED PATIENT TO CT VIA [facility] WITH RN ON LAUNDRY ROUTE DRIVER
--- NOTE | 2017-10-12 13:36 | NUR ---
CALLED TELESTROKE - DR MATTA IS [employer] ROBOTICIST
--- NOTE | 2017-10-12 13:43 | NUR ---
PANEL ON-CALL PAGED
--- NOTE | 2017-10-12 13:46 | NUR ---
CALLED NURSE SUP FOR ICU BED
[2017-10-12] MEDS ORDERED: MAG HYDROX/AL HYDROX/SIMETH 30 ML UDC PO PRN (14:30)
[2017-10-12] MEDS ORDERED: LABETALOL HCL IV 100MG VIAL IV PRN (14:30)
[2017-10-12] MEDS ORDERED: hydrALAZINE HCL IV 20 MG VIAL IV PRN (14:30)
[2017-10-12] MEDS ORDERED: ACETAMINOPHEN 325 MG TABLET PO PRN (14:30)
[2017-10-12] MEDS ORDERED: ONDANSETRON HCL/PF 4 MG/2 ML VIAL IVP PRN (14:30)
[2017-10-12] MEDS ORDERED: MAGNESIUM HYDROXIDE 30 ML UDC PO PRN (14:30)
--- NOTE | 2017-10-12 14:46 | NUR ---
JAIMIE MAYES TOOK REPORT
--- NOTE | 2017-10-12 15:00 | NUR ---
NAILHEAD OPERATOR ADMITTED INTO ICU FROM ER VIA [facility]. PT HAD CT SCAN THAT SHOWED CVA. PT AWAKE AND ABLE TO FOLLOW COMMANDS. SPEECH CLEAR, ABLE TO ANSWER QUESTIONS APPROPRIATELY.
--- NOTE | 2017-10-12 15:01 | NUR ---
TRANAPORTED PT TO ICU BED WITHOUT EMT WITHOUT INCIDENT
[2017-10-12] MEDS ORDERED: INSULIN REGULAR, HUMAN 100 UNIT/ML 3 ML VIAL SQ PRN (16:00)
[2017-10-12] MEDS ORDERED: DEXTROSE 50%-WATER 50 ML DISP.SYRIN IV PRN (16:00)
[2017-10-12] MEDS: ISOSORBIDE DINITRATE (20MG) 20 MG TABLET PO SCH (16:08)
[2017-10-12] MEDS: hydrALAZINE HCL 50 MG TABLET PO SCH (16:09)
[2017-10-12] MEDS: AMLODIPINE BESYLATE 5 MG TABLET PO SCH (16:12)
[2017-10-12] MEDS ORDERED: BLOOD SUGAR DIAGNOSTIC 1 EACH STRIP IN SCH (17:30)
[2017-10-12] MEDS: METOPROLOL TARTRATE 25 MG TABLET PO SCH ×2 (17:54→23:06)
[2017-10-12] MEDS: BLOOD SUGAR DIAGNOSTIC 1 EACH STRIP IN SCH (17:59)
--- NOTE | 2017-10-12 20:02 | NUR ---
GEOTECHNICAL FIELD TECHNICIAN DF RECEIVED PT TO ROOM#253 PT ADMIT DX ACUTE CVA. PT HAS NIHSS SCORE OF 5. PT ABNORMAL RESULTS INCLUDE PARTIAL LEFT SIDED WEAKNESS. PT HAS DIFFICULTY OPENING LEFT EYE. WHEN PROMPTED PT MAY OPEN LEFT EYE WITH PARTIAL GAZE PALSY TO LEFT EYE.WHEN RESTING NORMALLY PT HAS LEFT EYE CLOSED, ONLY CAN OPEN EYE WHEN PROMPTED. PT BUE/BLE STRENGTH WNL PT MAY RAISE BUE/BLE 5-10 SECONDS WITH NO DRIFT NOTED. SPEECH INTACT WITH MILD SLURRING NOTED.A/OX4 FOLLOWS COMMANDS.VSS.NAD NOTED.
[2017-10-12] MEDS: LISINOPRIL (10MG) 10 MG TABLET PO SCH (20:56)
[2017-10-12] MEDS: SIMVASTATIN 40 MG TABLET PO SCH (22:21)
--- NOTE | 2017-10-12 23:05 | NUR ---
BOTTOM TURNER DF PER MD GROVER PERMISSIVE HTN PARAMETERS OF 140-60. CURRENT BP OF 116/54. PER ORDERS WILL HOLD LOPRESSOR DUE AT 0000 WILL ADMIN IF BP WITHIN 140-160.SEE MD ORDERS/PROGRESS NOTES.
--- NOTE | 2017-10-12 23:59 | NUR ---
GEODETIC SURVEY DIRECTOR DF PT ACCU CHECK OF 112.PT REASSESSED FOR NIHSS NEUROCHECKS NO ACUTE CHANGES FROM PREVIOUS ASSESSMENT. A/OX4, FOLLOWS COMMANDS.
[2017-10-13] VITALS (25 sets, daily range): BP systolic 93–164; BP diastolic 55–118
[2017-10-13] MEDS: BLOOD SUGAR DIAGNOSTIC 1 EACH STRIP IN SCH ×2 (00:55→06:15)
[2017-10-13 04:48] LABS: BASOPHILS % (AUTO) 0.1 % (0.0-2.0); EOSINOPHILS # (AUTO) 0.7 /CMM (0.0-0.7); EOSINOPHILS % (AUTO) 6.2 % (0.0-6.0); HEMATOCRIT 46 % (39-51); HEMOGLOBIN 15.4 g/dL (13.5-17.5); LYMPHOCYTES % (AUTO) 18.6 % (20.0-44.0); MEAN CORPUSCULAR HEMOGLOBIN 30 PG (26.0-33.0); MEAN CORPUSCULAR HGB CONC 34 g/dl (31.0-36.0); MEAN CORPUSCULAR VOLUME 89 fL (80-96); MONOCYTES # (AUTO) 0.7 /CMM (0.1-1.30); MONOCYTES % (AUTO) 6.1 % (2.0-12.0); NEUTROPHILS # (AUTO) 7.4 /CMM (1.8-8.9); PLATELET COUNT (AUTO) 261 /CMM (150-450); RDW COEFFICIENT OF VARIATION 14.1 (11.5-15.0); RED BLOOD CELL COUNT(AUTO) 5.15 MIL/uL (4.5-6.0); WHITE BLOOD COUNT (AUTO) 10.7 K/uL (4.3-11.0)
[2017-10-13 05:01] LABS: CALCIUM, SERUM 8.4 mg/dL (8.5-10.1); CREATININE 1.3 mg/dL (0.6-1.3); MAGNESIUM 2.7 mg/dL (1.8-2.4)
[2017-10-13] MEDS: METOPROLOL TARTRATE 25 MG TABLET PO SCH (06:16)
--- NOTE | 2017-10-13 07:30 | NUR ---
DEMAND GENERATOR MANAGER RECEIVED PATIENT AWAKE SITTING ON BED PARTIAL EYE OPENING AT HIS LEFT EYE SLIGHT SLURRED SPEECH NOTED LEFT SIDED WEAKNESS OF UPPER AND LOWER EXTREMITIES NOTED PATIENT CAN ABLE TO SWALLOW WITH NO CHOKING OR COUGHING PLACED ON HIS COMFORTABLE POSITION OFFERED URINAL
[2017-10-13] MEDS: ATORVASTATIN 10 MG TABLET PO SCH (08:16)
[2017-10-13] MEDS: hydrALAZINE HCL 50 MG TABLET PO SCH ×4 (08:16→17:20)
[2017-10-13] MEDS: AMLODIPINE BESYLATE 5 MG TABLET PO SCH (08:16)
[2017-10-13] MEDS: ISOSORBIDE DINITRATE (20MG) 20 MG TABLET PO SCH ×3 (08:17→17:21)
[2017-10-13] MEDS: SPIRONOLACTONE 25 MG TABLET PO SCH (08:17)
[2017-10-13] MEDS: LISINOPRIL (10MG) 10 MG TABLET PO SCH ×2 (08:17→20:59)
[2017-10-13] MEDS: ASPIRIN 81 MG TAB.CHEW PO SCH (08:19)
[2017-10-13] MEDS ORDERED: ASPIRIN 81 MG TAB.CHEW PO SCH (09:00)
--- NOTE | 2017-10-13 11:44 | NUR ---
WASTE CHOPPER PATIENT HAS CONFUSED EPISODES AT TIMES MONITORED CLOSELY Addendum: 10/13/17 at 1145 by DAVID NEIL RN SEEN AND EXAMINED BY DR. WRIGHT SEEN AND EXAMINED BY DR. GROVER
[2017-10-13] MEDS: METOPROLOL SUCCINATE 50 MG TAB.SR.24H PO SCH (12:30)
--- NOTE | 2017-10-13 18:25 | NUR ---
REED OR WIND INSTRUMENT REPAIRER PATIENT WILL BE TRANSFERRED TO [facility] WITH DIVISION MERCHANDISE MANAGER DROWSY AT TIMES MONITORED CLOSELY GIVEN REPORT TO SUGEY YOUNG ENDORSED TO NOD
--- NOTE | 2017-10-13 18:51 | NUR ---
RN NOTES PT WAS BROUGHT TO THE FLOOR FROM ICU. PT IS VERY DROWSY BUT AROUSABLE. PT ON RA, RESPIRATIONS ARE EVEN AND UNLABORED. IV ON RAC INTACT AND SL. SAFETY MEASURES ARE IN PLACE, CALL LIGHT IS IN REACH. WILL ENDORSE TO CLIENT TECHNICAL PROFESSIONAL RN FOR CONTINUITY OF CARE.
[2017-10-13 18:56] LABS: ALBUMIN 2.3 g/dL (3.4-5.0); BILIRUBIN,DIRECT 0.2 mg/dL (0.0-0.2); BILIRUBIN,TOTAL 0.8 mg/dL (0.2-1.0); TOTAL PROTEIN, SERUM 6.9 g/dL (6.4-8.2)
--- NOTE | 2017-10-13 19:00 | NUR ---
RN OPENING NOTES PT AWAKE AND RESTING IN BED. DROWSY BUT EASILY AWOKEN TO NAME. PT HAS A RAC #18, INTACT AND PATENT. SAFETY PRECAUTIONS IN PLACE. BED IN LOWEST LOCKED POSITION, X2 SIDE RAILS IN PLACE. CALL LIGHT WITHIN REACH WILL CONTINUE TO MONITOR.
[2017-10-13] MEDS: SIMVASTATIN 40 MG TABLET PO SCH (21:50)
[2017-10-14] VITALS: BP 132/72
[2017-10-14 04:00] VITALS: BP 130/81
--- NOTE | 2017-10-14 07:47 | NUR ---
RN CLOSING NOTES SLEEPING IN BED. DROWSY BUT EASILY AWOKEN TO NAME. PT HAS A RAC #18, INTACT AND PATENT. PT TELE MONITOR SINUS RHYTHM 75. SAFETY PRECAUTIONS IN PLACE. BED IN LOWEST LOCKED POSITION, X2 SIDE RAILS IN PLACE. CALL LIGHT WITHIN REACH WILL ENDORSE TO DAY SHIFT NURSE FOR CONTINUITY OF CARE.
[2017-10-14 07:50] LABS: BASOPHILS # (AUTO) 0.1 /CMM (0.0-0.2); BASOPHILS % (AUTO) 0.7 % (0.0-2.0); EOSINOPHILS # (AUTO) 0.8 /CMM (0.0-0.7); EOSINOPHILS % (AUTO) 8.1 % (0.0-6.0); HEMATOCRIT 47 % (39-51); HEMOGLOBIN 15.8 g/dL (13.5-17.5); LYMPHOCYTES # (AUTO) 1.4 /CMM (0.8-4.8); LYMPHOCYTES % (AUTO) 14.5 % (20.0-44.0); MEAN CORPUSCULAR HEMOGLOBIN 30 PG (26.0-33.0); MEAN CORPUSCULAR HGB CONC 34 g/dl (31.0-36.0); MEAN CORPUSCULAR VOLUME 87 fL (80-96); MONOCYTES # (AUTO) 0.5 /CMM (0.1-1.30); MONOCYTES % (AUTO) 5.6 % (2.0-12.0); NEUTROPHILS # (AUTO) 6.8 /CMM (1.8-8.9); NEUTROPHILS % (AUTO) 71.1 % (43.0-81.0); PLATELET COUNT (AUTO) 359 /CMM (150-450); RDW COEFFICIENT OF VARIATION 13.8 (11.5-15.0); RED BLOOD CELL COUNT(AUTO) 5.35 MIL/uL (4.5-6.0); WHITE BLOOD COUNT (AUTO) 9.6 K/uL (4.3-11.0)
--- NOTE | 2017-10-14 07:50 | NUR ---
RN NOTES PATIENT ASLEEP BUT EASILY AROUSABLE, BREATHING EVEN AND UNLABORED, NO SOB NOTED, NO S/SX OF PAIN OR DISCOMFORT NOTED, NEEDS ATTENDED, KEPT PT COMFORTABLE, CALL LIGHT WITHIN REACH, WILL CONTINUE TO MONITOR.
[2017-10-14 08:03] LABS: CHOLESTEROL 153 mg/dL (<200); HDL CHOLESTEROL 33 mg/dL (40-60); LDL 112 mg/dL (0-99); TRIGLYCERIDES 106 mg/dL (30-150)
[2017-10-14 08:10] LABS: CALCIUM, SERUM 8.3 mg/dL (8.5-10.1); CREATININE 1.6 mg/dL (0.6-1.3); MAGNESIUM 2.9 mg/dL (1.8-2.4); PHOSPHORUS 3.8 mg/dL (2.5-4.9); POTASSIUM 3.5 mmol/L (3.5-5.1)
[2017-10-14 09:09] VITALS: BP 127/79
[2017-10-14] MEDS: LISINOPRIL (10MG) 10 MG TABLET PO SCH ×2 (09:46→20:21)
[2017-10-14] MEDS: ATORVASTATIN 10 MG TABLET PO SCH (09:46)
[2017-10-14] MEDS: hydrALAZINE HCL 50 MG TABLET PO SCH ×3 (09:46→16:34)
[2017-10-14] MEDS: SPIRONOLACTONE 25 MG TABLET PO SCH (09:47)
[2017-10-14] MEDS: ASPIRIN 81 MG TAB.CHEW PO SCH (09:47)
[2017-10-14] MEDS: ISOSORBIDE DINITRATE (20MG) 20 MG TABLET PO SCH ×2 (09:47→16:35)
[2017-10-14] MEDS ORDERED: IV NS 0.9% 1,000 ML IV PRN (11:00)
[2017-10-14] MEDS: METOPROLOL SUCCINATE 50 MG TAB.SR.24H PO SCH (11:47)
[2017-10-14 12:22] VITALS: BP 124/63
[2017-10-14 13:00] LABS: EOSINOPHILS % (MANUAL) 10 % (0-4); LYMPHOCYTES % (MANUAL) 12 % (16-48); MONOCYTES % (MANUAL) 7 % (0-11.0); NEUTROPHILS % (MANUAL) 71 (42-76)
[2017-10-14] MEDS ORDERED: diphenhydrAMINE HCL 25 MG CAPSULE PO ONE (13:00)
--- NOTE | 2017-10-14 13:54 | NUR ---
RN NOTES PATIENT HAS BEEN EVALUATED BY PT AND OT. PATIENT GIVEN BENADRYL, STILL NOTED WITH RASHES AT THIS TIME. DR. GROVER AWARE. PATIENT IS IN NO RESPIRATORY DISTRESS. NEEDS ATTENDED, CALL LIGHT WITHIN REACH, WILL CONTINUE TO MONITOR.
[2017-10-14 16:52] VITALS: BP 127/79
--- NOTE | 2017-10-14 19:03 | NUR ---
RN NOTES PATIENT A/OX3, SLEPT ON AND OFF THROUGHOUT THE SHIFT, BUT ABLE TO VERBALIZE NEEDS, BREATHING EVEN AND UNLABORED, NO SOB NOTED, DENIES PAIN AT THIS TIME, NEEDS ATTENDED AND MET, ASSISTED WITH TURNING AND REPOSITIONING, SKIN CARE RENDERED, PATIENT USES URINALS AT TIMES, BUT MOSTLY VOIDS ON THE DIAPER, PIV INFUSING AND TOLERATING WELL, CALL LIGHT WITHIN REACH, WILL ENDORSE TO TICKET SPECULATOR FOR NICCI.
--- NOTE | 2017-10-14 19:40 | NUR ---
TEST DRILLER INITIAL NOTES PT IS IN BED ASLEEP, EASILY AROUSED BUT LETHARGIC. BREATHING EVENLY AND UNLABORED ON RA, NO SIGNS OF SOB OR DISTRESS. DENIES PAIN AT THIS TIME. BED IS IN LOW AND LOCKED POSITION, CALL LIGHT WITHIN REACH. WILL CONTINUE TO MONITOR PT
[2017-10-14 20:00] VITALS: BP 124/64
[2017-10-15] VITALS: BP 156/90
[2017-10-15 04:00] VITALS: BP 149/88
[2017-10-15] MEDS ORDERED: diphenhydrAMINE HCL 25 MG CAPSULE PO PRN (04:30)
--- NOTE | 2017-10-15 06:34 | NUR ---
MACHINE SPLITTER CLOSING NOTES PT IS IN BED RESTING. NO SIGNS OF SOB OR DISTRESS, BREATHING EVENLY AND UNLABORED ON RA. TELE MONITOR SHOWS SR 84. PRN BENADRYL ORDER OBTAINED AND CARRIED OUT. ALL NEEDS WERE ANTICIPATED AND MET. BED IS IN LOW AND LOCKED POSITION, CALL LIGHT WITHIN REACH. WILL ENDORSE TO DAYSHIFT.
[2017-10-15 06:49] LABS: CALCIUM, SERUM 8.4 mg/dL (8.5-10.1); CREATININE 1.3 mg/dL (0.6-1.3); MAGNESIUM 2.7 mg/dL (1.8-2.4); PHOSPHORUS 3.3 mg/dL (2.5-4.9); POTASSIUM 3.9 mmol/L (3.5-5.1)
[2017-10-15 08:00] VITALS: BP 147/91
[2017-10-15] MEDS: ISOSORBIDE DINITRATE (20MG) 20 MG TABLET PO SCH ×2 (09:09→17:26)
[2017-10-15] MEDS: SPIRONOLACTONE 25 MG TABLET PO SCH (09:09)
[2017-10-15] MEDS: hydrALAZINE HCL 50 MG TABLET PO SCH ×3 (09:09→17:00)
[2017-10-15] MEDS: ATORVASTATIN 10 MG TABLET PO SCH (09:09)
[2017-10-15] MEDS: ASPIRIN 81 MG TAB.CHEW PO SCH (09:10)
[2017-10-15] MEDS: LISINOPRIL (10MG) 10 MG TABLET PO SCH ×2 (09:30→21:57)
[2017-10-15 12:00] VITALS: BP 123/71
[2017-10-15] MEDS: METOPROLOL SUCCINATE 50 MG TAB.SR.24H PO SCH (12:25)
[2017-10-15 16:00] VITALS: BP 120/81
--- NOTE | 2017-10-15 18:30 | NUR ---
pt. pulled out iv restarted in rt. forearm with #22 angio.neuro assessment unchanged.
--- NOTE | 2017-10-15 19:30 | NUR ---
MS RN OPENING NOTES: PATIENT IN BED, AOX4 SPEAKS IN TAGALOG, NO SLURRED SPEECH. ON ROOM AIR, BREATHING EVEN AND UNLABORED. APPEARS CALM AND IN NO DISTRESS, DENIES PAIN. STATES THAT HE HAS LEFT SIDED WEAKNESS, BUT ALSO STATES THAT IT HAS BEEN THAT WAY FOR ALMOST A YEAR, SINCE HE WAS IN THE [facility]. BUT [facility] PATIENT, THE REASON WHY HE WAS BROUGHT TO [facility] WAS BECAUSE HE WAS MORE WEAK, WAS DIZZY AND HAD N/V. DENIES NAUSEA AT THIS TIME. CHECKED RENY ARMS AND LEGS FOR STRENGTH WHILE IN BED, APPEARS TO HAVE SLIGHT WEAKNESS IN PROTECTION ANALYST OVER LEFT HAND, NO ARM DRIFTING. RENY FEET HAD EQUAL STRENGTH AGAINST RESISTANCE IN BED. PIV OVER RFA G 22 INTACT AND PATENT, INFUSING WELL WITH NS RUNNING AT 50 ML/HR. PROVIDED FOR COMFORT AND SAFETY. BED IN LOWEST AND LOCKED POSITION, SIDERAILS UP X 3, CALL LIGHT WITHIN REACH. BED ALARMS ON. WILL CONT TO MONITOR NEURO STATUS FREQUENTLY.
[2017-10-15 20:00] VITALS: BP 135/83
--- NOTE | 2017-10-16 04:17 | NUR ---
RN NOTES: PIV OVER RFA NOTED TO BE TENDER AND BEGINNING TO SWELL/ IV D'SIRENA AND NEW IV LINE INSERTED OVER RAC G22, WITH GOOD BLOOD RETURN. WILL CONT TO MONITOR.
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
--- NOTE | 2017-10-16 07:04 | NUR ---
MS RN CLOSING NOTES: PATIENT IN BED,AOX4, ON ROOM AIR, BREATHING EVEN AND UNLABORED. APPEARS CALM AND IN NO DISTRESS, DENIES PAIN. PIV OVER RACG 22 INTACT AND PATENT, INFUSING WELL WITH NS RUNNING AT 50 ML/HR. DUE MEDS GIVEN. MONITORED NEUROLOGIC STATUS FREQUENTLY. PROVIDED FOR COMFORT AND SAFETY. BED IN LOWEST AND LOCKED POSITION, SIDERAILS UP X 3. BED ALARMS ON. WILL ENDORSE TO AM RN FOR NICCI.
[2017-10-16 08:00] VITALS: BP 165/102
[2017-10-16] MEDS: LISINOPRIL (10MG) 10 MG TABLET PO SCH (08:23)
[2017-10-16] MEDS: ASPIRIN 81 MG TAB.CHEW PO SCH (08:23)
[2017-10-16] MEDS: ATORVASTATIN 10 MG TABLET PO SCH (08:24)
[2017-10-16] MEDS: SPIRONOLACTONE 25 MG TABLET PO SCH (08:24)
[2017-10-16] MEDS: ISOSORBIDE DINITRATE (20MG) 20 MG TABLET PO SCH (08:24)
[2017-10-16] MEDS: hydrALAZINE HCL 50 MG TABLET PO SCH ×2 (08:24→13:47)
--- NOTE | 2017-10-16 10:15 | NUR ---
Family came into the office stating they want the patient to have medi-claudy. Informed them that will notify Alma Delia ([facility] rep- ext [phone]). Called Alma Delia and left a voice message indicating that the family wants the patient to apply for medi-claudy. Informed family and also provided them with Alma Delia's telephone number.
[2017-10-16] MEDS: METOPROLOL SUCCINATE 50 MG TAB.SR.24H PO SCH (12:21)
[2017-10-16 13:47] VITALS: BP 143/95
--- NOTE | 2017-10-16 14:59 | NUR ---
Residential Treatment Specialist Consult was requested by ASHLEY Piedra regarding filing for [employer] paperwork. Per case management, the [employer] application was already filed by the financial counselor Alma Delia ([phone]). LIA spoke with pt's son Zbigniew who reported that Garrett informed him that the paperwork had been filed.
--- NOTE | 2017-10-16 15:00 | NUR ---
dc papers signed along with belonging sheet.dc photos taken.hep lock removed.pt. dressed .rn went over meds for pt. to take as only those written on rx.pt. escorted by tez in w/c additionally accompanied by 2 family members to lobby for uber picking tech.
== END 2017-10-16 13:50 | disposition home or self-care (01) | DRG 304 ==
LOC: ER 10:45 → ICU 14:45 → TELE 10-13 18:45 → MED 10-15 16:47
PROVIDERS: ADMIT Internal Medicine; ATTEND Internal Medicine
DX: I16.0 Hypertensive urgency (principal); G93.41 Metabolic encephalopathy; I66.3 Occlusion and stenosis of cerebellar arteries; N17.9 Acute kidney failure, unspecified; I69.854 Hemiplegia and hemiparesis following other cerebrovascular disease affecting left non-dominant side; I67.2 Cerebral atherosclerosis; I70.1 Atherosclerosis of renal artery; I12.9 Hypertensive chronic kidney disease with stage 1 through stage 4 chronic kidney disease, or unspecified chronic kidney disease; I25.2 Old myocardial infarction; N18.9 Chronic kidney disease, unspecified; K21.9 Gastro-esophageal reflux disease without esophagitis; R74.0 Nonspecific elevation of levels of transaminase and lactic acid dehydrogenase [LDH]; Z91.19 Patient's noncompliance with other medical treatment and regimen; E78.5 Hyperlipidemia, unspecified
CPT/HCPCS: 36415; 70450-TC; 70496-TC; 70498-TC; 80048-TC; 80061-TC; 80076-TC; 80305; 82962-TC; 83735-TC; 84100-TC; 84484-TC; 85025-TC; 87081-TC; 92521; 92611-TC; 97112-TC; 97116-TC; 97530-TC; 97535-TC; A4606; J1815; J7030; Q0163; Z7610